=== PATIENT | male | born 1970 | race Caucasian/White ===

== ENCOUNTER 2021-12-07 19:06 | Emergency (ER) | payer BC ==
[2021-12-07 19:56] VITALS: RESP 16; TEMP 97.8
[2021-12-07] MEDS ORDERED: ORPHENADRINE 30 MG/ML 2 ML VIAL IM STA (21:48)
[2021-12-07] MEDS ORDERED: KETOROLAC 15 MG/ML 1 ML VIAL IM STA (21:48)
--- NOTE | 2021-12-07 21:50 | ED ---
Back Pain HPI - General Chief Complaint: Back Pain/Injury Stated Complaint: back pain Time Seen by Provider: 12/07/21 21:27 Source: patient Limitations: no limitations - History of Present Illness Initial Comments: This patient is a 51-year-old man who presents with complaint of right low back pain that radiates to his right leg. The pain had come on earlier today at work. He did not note a specific injury. He tried taking some ibuprofen earlier in the day and is few hours later tried taking naproxen there was only minimal relief of his symptoms. He has had similar pain in the past and was seen at [facility] where he had computed tomography scan that reportedly showed a bulging disc. The patient denies any weakness of the legs. No saddle anesthesia. No change in bladder or bowel function. MD Complaint: back injury -: hour(s) Similar Symptoms Previously: Yes Place: work Radiation: left leg Severity: severe Quality: burning, aching Consistency: constant Improves With: none Worsens With: none Associated Symptoms: denies other symptoms - Related Data Previous Rx's Medication Instructions Recorded Ibuprofen 800 mg PO Q8H #30 tab 12/07/21 methocarbamoL [Robaxin-750] 1,500 mg PO TID #30 tab 12/07/21 Allergies Allergy/AdvReac Type Severity Reaction Status Date / Time No Known Allergies Allergy Verified 03/24/17 11:00 Review of Systems ROS Statement: Those systems with pertinent positive or pertinent negative responses have been documented in the HPI. ROS Other: All systems not noted in ROS Statement are negative. Constitutional: Denies: fever, chills Respiratory: Denies: dyspnea Cardiovascular: Denies: chest pain Gastrointestinal: Denies: abdominal pain, diarrhea, constipation Genitourinary: Denies: urgency, dysuria, frequency, hematuria, testicular pain Musculoskeletal: Reports: as per HPI, back pain Skin: Denies: rash Neurological: Reports: paresthesias. Denies: headache, weakness Past Medical History Past Medical History: Chest Pain / Angina, Osteoarthritis (OA), Skin Disorder Additional Past Medical History / Comment(s): SOB, 'felt like a lump in my stomach", gets eczema from sunlight, History of Any Multi-Drug Resistant Organisms: None Reported Past Surgical History: Hernia Repair, Joint Replacement, Orthopedic Surgery Additional Past Surgical History / Comment(s): RIGHT KNEE-RECONSTRUCTION, RIGHT KNEE ARTHROSCOPIC, LASIK, VASECTOMY, rt hip replacement Past Anesthesia/Blood Transfusion Reactions: No Reported Reaction Past Psychological History: No Psychological Hx Reported Past Alcohol Use History: None Reported Additional Past Alcohol Use History / Comment(s): quit smoking 09/2016, smoked 20 yrs, 1 PPD Past Drug Use History: None Reported - Past Family History Mother Family Medical History: Cancer Brother(s) Family Medical History: Cancer General Exam Limitations: no limitations General appearance: alert, in no apparent distress Head exam: Present: atraumatic, normocephalic Eye exam: Present: normal appearance. Absent: scleral icterus, conjunctival injection Neck exam: Present: normal inspection Respiratory exam: Present: normal lung sounds bilaterally. Absent: respiratory distress, wheezes, rales, rhonchi, stridor Cardiovascular Exam: Present: regular rate, normal rhythm, normal heart sounds. Absent: systolic murmur, diastolic murmur, rubs, gallop GI/Abdominal exam: Present: soft. Absent: distended, tenderness, guarding, pulsatile mass Extremities exam: Present: normal inspection, full ROM, normal capillary refill. Absent: tenderness, pedal edema, calf tenderness Back exam: Present: normal inspection, paraspinal tenderness. Absent: CVA tenderness (R), vertebral tenderness Neurological exam: Present: alert, reflexes normal. Absent: motor sensory deficit Skin exam: Present: warm, dry, intact, normal color. Absent: rash Course Vital Signs 12/07/21 19:53 Temperature 97.8 F Pulse Rate 74 Respiratory 16 Rate Blood Pressure 145/79 O2 Sat by Pulse 95 Oximetry Disposition Clinical Impression: Lumbar radicular pain Disposition: HOME SELF-CARE Condition: Good Instructions (If sedation given, give patient instructions): Lumbar Radiculopathy (ED) Prescriptions: Ibuprofen 800 mg PO Q8H #30 tab methocarbamoL [Robaxin-750] 1,500 mg PO TID #30 tab Is patient prescribed a controlled substance at d/c from ED?: No Referrals: None,Stated [Primary Care Provider] - 1-2 days
[2021-12-07] MEDS ORDERED: HYDROmorphone 1 MG/ML 1 ML SYRINGE IM STA (22:55)
[2021-12-07 23:40] VITALS: BP 163/72; PULSE 71
== END 2021-12-07 23:40 | disposition home or self-care (01) ==
LOC: EC 19:06
DX: M54.16 Radiculopathy, lumbar region (principal); M19.90 Unspecified osteoarthritis, unspecified site; Z87.891 Personal history of nicotine dependence
CPT/HCPCS: 99283; 96372 ×3; J2360; J1170; J1885